=== PATIENT | female | born 1985 | race Caucasian/White ===

== ENCOUNTER 2016-12-21 21:17 | Emergency (ER) | payer OTHER ==
[2016-12-21 23:05] VITALS: BP 121/75
== END 2016-12-21 23:05 | disposition home or self-care (01) ==
LOC: ED 21:17
DX: M26.603 Bilateral temporomandibular joint disorder, unspecified (principal)
CPT/HCPCS: J1100; J1885

== ENCOUNTER 2017-01-14 12:57 | Emergency (ER) | payer OTHER ==
[~2017-01-14] VITALS: Ht 157.5 cm; Wt 91.2 kg
[2017-01-14 13:01] VITALS: BP 119/81
== END 2017-01-14 13:42 | disposition home or self-care (01) ==
LOC: ED 12:57
DX: S93.602A Unspecified sprain of left foot, initial encounter (principal); W22.09XA Striking against other stationary object, initial encounter; Y93.89 Activity, other specified; Y99.8 Other external cause status; Y92.009 Unspecified place in unspecified non-institutional (private) residence as the place of occurrence of the external cause
CPT/HCPCS: Q0092

== ENCOUNTER 2018-01-31 01:59 | Emergency (ER) | payer MEDICAID ==
[~2018-01-31] VITALS: Ht 157.5 cm; Wt 94.5 kg
[2018-01-31 02:05] VITALS: Ht 157.5 cm; Wt 94.5 kg
[2018-01-31 03:24] LABS: UA SPECIFIC GRAVITY 1.025 (1.005-1.035); microscopic required? YES; urine erythrocyte 3+ (NEGATIVE)
[2018-01-31 03:57] LABS: CALCIUM 8.9 mg/dL (8.5-10.1); CARBON DIOXIDE 28.7 mmol/L (21-32); CHLORIDE SERUM 105 mmol/L (98-107); CREATININE SERUM 0.7 mg/dL (0.6-1.0); GFR1 > 60 mL/min; GLUCOSE SERUM 112 mg/dL (74-106); POTASSIUM SERUM 3.9 mmol/L (3.5-5.1); SODIUM SERUM 140 mmol/L (136-145)
[2018-01-31 04:04] LABS: ALKALINE PHOSPHATASE 80 U/L (46-116); ALT/SGPT 27 U/L (14-59); AST/SGOT 17 U/L (15-37); BILIRUBIN TOTAL 0.15 mg/dL (0.20-1.00); TOTAL PROTEIN, SERUM 7.8 g/dL (6.4-8.2)
[2018-01-31 04:09] LABS: ALBUMIN 3.3 g/dL (3.4-5.0)
[2018-01-31 04:43] VITALS: BP 123/86
== END 2018-01-31 04:43 | disposition home or self-care (01) ==
LOC: ED 01:59
PROVIDERS: Emergency Medicine
DX: M79.7 Fibromyalgia (principal); N39.0 Urinary tract infection, site not specified; M25.572 Pain in left ankle and joints of left foot; M25.571 Pain in right ankle and joints of right foot

== ENCOUNTER 2018-03-01 00:45 | Emergency (ER) | payer MEDICAID ==
[~2018-03-01] VITALS: Ht 157.5 cm; Wt 91.8 kg
[2018-03-01 00:49] VITALS: Ht 157.5 cm; Wt 91.8 kg
[2018-03-01 01:22] VITALS: BP 125/73
== END 2018-03-01 01:22 | disposition home or self-care (01) ==
LOC: ED 00:45
DX: J02.9 Acute pharyngitis, unspecified (principal); E11.9 Type 2 diabetes mellitus without complications
CPT/HCPCS: J7512

== ENCOUNTER 2018-07-05 21:36 | Emergency (ER) | payer SELFPAY ==
[~2018-07-05] VITALS: Ht 154.9 cm; Wt 97.1 kg
[2018-07-05 21:46] VITALS: Ht 154.9 cm; Wt 97.1 kg
[2018-07-05 22:33] LABS: BASOPHIL % 0.6 % (0-2); PLATELET COUNT 391 x10^3mcL (130-400)
[2018-07-05 22:35] LABS: RED CELL DISTRIBUTION WIDTH 15.7 % (11.5-14.5)
[2018-07-05 23:21] LABS: CALCIUM 8.9 mg/dL (8.5-10.1); CARBON DIOXIDE 29.6 mmol/L (21-32); CHLORIDE SERUM 104 mmol/L (98-107); CREATININE SERUM 0.7 mg/dL (0.6-1.0); GFR1 > 60 mL/min; GLUCOSE SERUM 137 mg/dL (74-106); POTASSIUM SERUM 3.6 mmol/L (3.5-5.1); SODIUM SERUM 139 mmol/L (136-145)
[2018-07-05 23:33] LABS: ALBUMIN 3.4 g/dL (3.4-5.0); ALKALINE PHOSPHATASE 98 U/L (46-116); ALT/SGPT 41 U/L (14-59); AST/SGOT 29 U/L (15-37); BILIRUBIN TOTAL 0.31 mg/dL (0.20-1.00); LIPASE 152 IU/L (73-393); TOTAL PROTEIN, SERUM 7.8 g/dL (6.4-8.2)
[2018-07-06 01:44] VITALS: BP 135/81
== END 2018-07-06 01:44 | disposition home or self-care (01) ==
LOC: ED 21:36
PROVIDERS: Emergency Medicine
DX: K29.70 Gastritis, unspecified, without bleeding (principal); K21.9 Gastro-esophageal reflux disease without esophagitis; E11.9 Type 2 diabetes mellitus without complications; D64.9 Anemia, unspecified
CPT/HCPCS: 36415; 82962; J1885; Q0092; Q0162

== ENCOUNTER 2018-09-15 03:45 | Emergency (ER) | payer SELFPAY ==
[~2018-09-15] VITALS: Ht 157.5 cm; Wt 96.2 kg
[2018-09-15 03:48] VITALS: Ht 157.5 cm; Wt 96.2 kg
[2018-09-15 04:50] LABS: BASOPHIL % 0.4 % (0-2); PLATELET COUNT 358 x10^3mcL (130-400); RED CELL DISTRIBUTION WIDTH 16.6 % (11.5-14.5)
[2018-09-15 04:57] LABS: CALCIUM 8.8 mg/dL (8.5-10.1); CARBON DIOXIDE 25.4 mmol/L (21-32); CHLORIDE SERUM 100 mmol/L (98-107); CREATININE SERUM 0.8 mg/dL (0.6-1.0); GFR1 > 60 mL/min; GLUCOSE SERUM 119 mg/dL (74-106); POTASSIUM SERUM 3.4 mmol/L (3.5-5.1); SODIUM SERUM 137 mmol/L (136-145)
[2018-09-15 05:02] LABS: ALKALINE PHOSPHATASE 83 U/L (46-116); ALT/SGPT 35 U/L (14-59); AST/SGOT 15 U/L (15-37); BILIRUBIN TOTAL 0.7 mg/dL (0.20-1.00); LIPASE 75 IU/L (73-393)
[2018-09-15 05:04] LABS: ALBUMIN 3.3 g/dL (3.4-5.0); TOTAL PROTEIN, SERUM 8.5 g/dL (6.4-8.2)
[2018-09-15 07:16] VITALS: BP 104/50
== END 2018-09-15 07:16 | disposition home or self-care (01) ==
LOC: ED 03:45
PROVIDERS: Emergency Medicine
DX: R10.9 Unspecified abdominal pain (principal); R11.2 Nausea with vomiting, unspecified; R19.7 Diarrhea, unspecified; E11.9 Type 2 diabetes mellitus without complications
CPT/HCPCS: J0500; J1885; J2270; J2405

== ENCOUNTER 2018-09-26 05:32 | Emergency (ER) | payer SELFPAY ==
[~2018-09-26] VITALS: Ht 157.5 cm; Wt 98.9 kg
[2018-09-26 05:37] VITALS: Ht 157.5 cm; Wt 98.9 kg
[2018-09-26 07:06] LABS: BASOPHIL % 0.4 % (0-2); PLATELET COUNT 375 x10^3mcL (130-400)
[2018-09-26 07:08] LABS: RED CELL DISTRIBUTION WIDTH 16.7 % (11.5-14.5)
[2018-09-26 07:15] LABS: microscopic required? YES; urine erythrocyte 1+ (NEGATIVE)
[2018-09-26 07:17] LABS: CALCIUM 8.7 mg/dL (8.5-10.1); CARBON DIOXIDE 24.4 mmol/L (21-32); CHLORIDE SERUM 103 mmol/L (98-107); CREATININE SERUM 0.6 mg/dL (0.6-1.0); GFR1 > 60 mL/min; GLUCOSE SERUM 138 mg/dL (74-106); SODIUM SERUM 138 mmol/L (136-145)
[2018-09-26 07:28] LABS: ALKALINE PHOSPHATASE 79 U/L (46-116); ALT/SGPT 40 U/L (14-59); AST/SGOT 20 U/L (15-37); BILIRUBIN TOTAL 0.25 mg/dL (0.20-1.00); LIPASE 156 IU/L (73-393); TOTAL PROTEIN, SERUM 7.7 g/dL (6.4-8.2)
[2018-09-26 07:32] LABS: ALBUMIN 3.1 g/dL (3.4-5.0)
[2018-09-26 10:40] VITALS: BP 124/72
== END 2018-09-26 10:40 | disposition home or self-care (01) ==
LOC: ED 05:32
PROVIDERS: Emergency Medicine
DX: N10 Acute pyelonephritis (principal); R19.7 Diarrhea, unspecified; E11.9 Type 2 diabetes mellitus without complications
CPT/HCPCS: J1885; J2405; J7030